=== PATIENT | male | born 1960 | race Caucasian/White ===

== ENCOUNTER 2017-03-31 05:29 | Emergency (ER) | payer OTHER ==
[~2017-03-31] VITALS: Ht 177.8 cm; Wt 75.0 kg
[~2017-03-31 05:29] MED LIST: ACET400C PO; ASPI81 PO; CLA1000C OR; COZA50TA PO; CYCL-36 PO; ISOMCAP PO; MISC1TAB9 PO; NUCY75TA4 PO; OMEG1CAP53 PO; ONDA1TAB16 PO; PRIL20TA2 PO; ROSU10 PO; SUMA50TA2 OR; SUMA6P SQ; TRIL135C PO; VITA500L4 PO; [UNRECOGNIZED DRUG - OTHER] OR
[2017-03-31 05:33] VITALS: BP 136/86; PULSE 97; RESP 18; TEMP 101.1; O2SAT 96
[2017-03-31 06:00] VITALS: BP 135/70; PULSE 98; RESP 20; O2SAT 96
[2017-03-31] MEDS ORDERED: LOSA100T PO (06:02)
[2017-03-31] MEDS ORDERED: OMEG1CAP28 PO (06:02)
[2017-03-31] MEDS ORDERED: ASPI81CH CHEW (06:02)
[2017-03-31] MEDS ORDERED: TOPI1TAB36 PO (06:02)
[2017-03-31] MEDS ORDERED: ROSU1TAB8 PO (06:02)
--- NOTE | 2017-03-31 06:09 | PD ---
HPI Chief Complaint: Abdominal Pain Time Seen by Provider: 05:43 Travel History International Travel<30 days: No Contact w/Intl Traveler<30days: No Traveled to known affect area: No History of Present Illness HPI The patient is a 56 year old male who presents to the [facility] emergency department with a history of abdominal pain that he reports began at approximate 7:30 PM last night. He reports that the pain is sharp and worse in the perineum. The patient reports that it is also present in bilateral lower quadrants of the abdomen and suprapubic area. He reports that in the abdomen the sensation as more of a pressure sensation. The patient reports having nausea but no vomiting. He reports that moving his bowels makes the pain worse. He reports that he's had 2 bowel movements since onset. He denies having any blood in his stool or black or tarry stools. He reports that having a full bladder seems to help with the pain. He otherwise denies any dysuria, urinary frequency, or urinary urgency. He denies having any flank pain. He denies having any new back pain. He does report having a history of chronic back pain. He denies any prior history of prostatitis or diverticulitis. He reports that he had a colonoscopy that was unremarkable 2 years ago. He denies any prior history of kidney stones. The patient was noted to be febrile prior to arrival. The patient arrives with a temp of 101. The patient denies having any diarrhea. He reports that his stool has been slightly hard. The patient denies having any penile discharge, scrotal pain, or scrotal swelling. The patient denies any recent cough cough, congestion, neck pain, chest pain, shortness of breath, or neurologic symptoms. [facility] Past Medical History Narrative Medical The patient's past medical history is significant for chronic back pain, hypertension, hyperlipidemia, coronary artery disease with RCA stenosis of 45% on a heart catheter, migraine headaches, sleep apnea. Blood Disorders: No Cancer: No Cardiac Catheterization: Yes (4 YEARS AGO WTIH 40% OCCLUSION TO RCA) Cardiovascular Problems: Yes High Cholesterol: Yes Coronary Artery Disease: Yes Diminished Hearing: No Endocrine: No Gastrointestinal Disorders: Yes GERD: Yes Genitourinary: No Hypertension: Yes Immune Disorder: No Musculoskeletal: Yes Neurologic: No Psychiatric: No Respiratory: Yes (TESTED POSITIVE NOV 2009) Migraines: Yes Tetanus Vaccination: < 5 Years Influenza Vaccination: No Past Surgical History Narrative Surgical The patient's past surgical history is significant for cervical spine surgery, history of right wrist tendon repair, bone spur removal off of the left foot Neurologic Surgery: Yes (C- cage) Social History Alcohol Use: Yes (3-4 drinks per week) Tobacco Use: No Substance Use: No Allergies-Medications (Allergen,Severity, Reaction): Coded Allergies: Lipitor (Verified Allergy, Severe, CRAMPS, 03/31/17) Reported Meds & Prescriptions Reported Meds & Active Scripts Active Reported Losartan (Losartan Potassium) 100 Mg Tab 100 Mg PO DAILY Topiramate 50 Mg Tab 50 Mg PO BID Rosuvastatin (Rosuvastatin Calcium) 20 Mg Tab 20 Mg PO DAILY Aspirin 81 Mg Chew 81 Mg CHEW DAILY [id number] Ethyl Esters 1 Gm Cap 1 Gm PO BID Review of Systems General / Constitutional: Positive: Fever Eyes: No: Visual changes HENT: No: Headaches Cardiovascular: No: Chest Pain or Discomfort Respiratory: No: Shortness of Breath Gastrointestinal: Positive: Nausea, Abdominal Pain, No: Vomiting, Diarrhea, Hematemesis, Changes in Bowel Habits, Indigestion, Loss of Appetite Genitourinary: Positive: Pelvic Pain, No: Urgency, Frequency, Dysuria, Flank Pain Musculoskeletal: No: Pain Skin: No Rash Neurologic: No: Weakness, Focal Abnormalities, Change in Mentation, Slurred Speech, Sensory Disturbance Psychiatric: No: Depression Endocrine: No: Polydipsia Hematologic/Lymphatic: No: Easy Bruising Physical Exam Narrative General: The patient is a well-developed well-nourished male in no acute distress. Head and Neck exam: Head is normocephalic atraumatic. Eyes: EOMI, pupils are equal round and reactive to light. Nose: Midline septum with pink mucous membranes Mouth: Dentition unremarkable. Moist mucus membranes. Posterior oropharynx is not erythematous. No tonsillar hypertrophy. Uvula midline. Airway patent. Neck: No palpable lymphadenopathy. No nuchal rigidity. No thyromegaly. Cardiovascular: Regular rate and rhythm without murmurs, gallops, or rubs. No pulse deficit to the extremities and simultaneous auscultation and palpation of his radial artery. Lungs: Clear to auscultation bilaterally. No wheezes, rhonchi, or rales. Abdomen: Soft, with tenderness on palpation of the suprapubic area and bilateral lower quadrants of the abdomen slightly worse on the right compared to the left by his report. No tenderness on palpation of the midepigastric area and bilateral upper quadrants of the abdomen. No guarding, rebound, or rigidity. Normal bowel sounds are audible. Extremities: No clubbing, cyanosis, or edema. 2+ pulses in all 4 extremities. Back: No costovertebral angle tenderness to palpation. Neurologic Exam: Grossly nonfocal. Skin Exam: No rash noted. Intact skin that is warm and dry. Genital exam: The patient is a circumcised male. No genital lesions or rash noted. No scrotal pain or swelling on examination. No palpable testicle masses or tenderness on palpation. No perineal erythema or lesions noted. No perineal crepitus. No tenderness on palpation of the site. RECTAL EXAM: No masses or tenderness, stool is brown. No palpable masses on examination of the patient's prostate. No prostate tenderness on palpation. Hemoccult negative stools. Data Data Last Documented VS Vital Signs Date Time Temp Pulse Resp B/P Pulse Ox O2 Delivery O2 Flow Rate FiO2 03/31/17 06:41 97 20 140/68 95 03/31/17 05:33 101.1 Orders Complete Blood Count With Diff (03/31/17 06:11) Comprehensive Metabolic Panel (03/31/17 06:11) Prothrombin Time / Inr (Pt) (03/31/17 06:11) Act Partial Throm Time (Ptt) (03/31/17 06:11) Blood Culture (03/31/17 06:11) Lipase (03/31/17 06:11) Urinalysis - C+S If Indicated (03/31/17 06:11) Magnesium (Mg) (03/31/17 06:11) Ct Abd/Pel W Iv Contrast(Rout) (03/31/17 06:11) Iv Access Insert/Monitor (03/31/17 06:11) Ecg Monitoring (03/31/17 06:11) Oximetry (03/31/17 06:11) Lactic Acid (03/31/17 06:11) Sodium Chlor 0.9% 1000 Ml Inj (Ns 1000 M (03/31/17 06:15) Ondansetron Inj (Zofran Inj) (03/31/17 06:15) Morphine Inj (Morphine Inj) (03/31/17 06:15) Sodium Chlor 0.9% 1000 Ml Inj (Ns 1000 M (03/31/17 07:00) Piperacil-Tazo 3.375 Gm Premix (Zosyn 3. (03/31/17 07:00) Labs Laboratory Tests Test 03/31/17 03/31/17 06:10 06:15 White Blood Count 17.0 TH/MM3 Red Blood Count 5.61 MIL/MM3 Hemoglobin 15.6 GM/DL Hematocrit 47.5 % Mean Corpuscular Volume 84.7 FL Mean Corpuscular Hemoglobin 27.8 PG Mean Corpuscular Hemoglobin 32.8 % Concent Red Cell Distribution Width 14.5 % Platelet Count 163 TH/MM3 Mean Platelet Volume 8.9 FL Neutrophils (%) (Auto) 86.9 % Lymphocytes (%) (Auto) 7.5 % Monocytes (%) (Auto) 5.2 % Eosinophils (%) (Auto) 0.1 % Basophils (%) (Auto) 0.3 % Neutrophils # (Auto) 14.8 TH/MM3 Lymphocytes # (Auto) 1.3 TH/MM3 Monocytes # (Auto) 0.9 TH/MM3 Eosinophils # (Auto) 0.0 TH/MM3 Basophils # (Auto) 0.0 TH/MM3 CBC Comment DIFF FINAL Differential Comment Prothrombin Time 10.7 SEC Prothromb Time International 1.0 RATIO Ratio Activated Partial 26.6 SEC Thromboplast Time Sodium Level 139 MEQ/L Potassium Level 3.9 MEQ/L Chloride Level 108 MEQ/L Carbon Dioxide Level 22.2 MEQ/L Anion Gap 9 MEQ/L Blood Urea Nitrogen 17 MG/DL Creatinine 1.24 MG/DL Estimat Glomerular Filtration 61 ML/MIN Rate Random Glucose 114 MG/DL Calcium Level 9.2 MG/DL Magnesium Level 1.9 MG/DL Total Bilirubin 0.7 MG/DL Aspartate Amino Transf 30 U/L (AST/SGOT) Alanine Aminotransferase 37 U/L (ALT/SGPT) Alkaline Phosphatase 75 U/L Total Protein 7.3 GM/DL Albumin 3.6 GM/DL Lipase 104 U/L Urine Color YELLOW Urine Turbidity CLEAR Urine pH 6.0 Urine Specific [place] 1.025 Urine Protein NEG mg/dL Urine Glucose (UA) NEG mg/dL Urine Ketones NEG mg/dL Urine Occult Blood NEG Urine Nitrite NEG Urine Bilirubin NEG Urine Urobilinogen LESS THAN 2.0 MG/DL Urine Leukocyte Esterase NEG Urine WBC 2 /hpf Urine Transitional Epithelial <1 /hpf Cells Urine Hyaline Casts 1 /lpf Urine Mucus FEW /lpf Microscopic Urinalysis Comment CULT NOT INDICATED MDM Medical Decision Making Medical Screen Exam Complete: Yes Emergency Medical Condition: Yes Medical Record Reviewed: Yes Differential Diagnosis Prostatitis, versus diverticulitis, versus appendicitis, versus cystitis, versus pyelonephritis, versus colitis Narrative Course During the course of the patients emergency department visit, the patients history, examination, and differential diagnosis were reviewed with the patient. The patient had IV access obtained and blood work sent for analysis. The patient was placed on a night monitor with oximetry and blood pressure monitoring. A CT scan of the abdomen and pelvis was ordered. The patient was initially provided normal saline 1 L IV fluid bolus, morphine 4 mg IV, Zofran 4 mg IV. The patient reports that he is having difficulty urinating. A Shukla catheter was placed and the patient had 300 mL of urine out. This was continued during his emergency department observation. The patient was given Tylenol for fever. The patients laboratory studies were reviewed and remarkable for a white count of 17,000, hemoglobin 15.6, platelets 163, neutrophils 86.9. The patient was given Zosyn 3.375 g IV. CMP is remarkable for CO2 of 108, glucose 114, lipase 104, lactic acid is pending. PT 10.7, PTT 26.6, urinalysis is unremarkable. CT scan of the abdomen and pelvis is pending. The patient's case will be checked out to the oncoming emergency physician to disposition based on the conclusion of the patient's workup. Diagnosis Primary Impression: Abdominal pain Qualified Code: R10.30 - Lower abdominal pain Additional Impression: Fever Qualified Code: R50.9 - Fever, unspecified fever cause Karla Olmedo MD March 31, 2017 06:09 Karla Olmedo MD March 31, 2017 06:09
[2017-03-31] MEDS ORDERED: SODIUM CHLOR 0.9% 1000 ML INJ 1,000 ML IV ONE ×2 (06:15→07:00)
[2017-03-31] MEDS ORDERED: ONDANSETRON HCL 4 MG/2 ML VIAL IV ONE (06:15)
[2017-03-31] MEDS ORDERED: MORPHINE SULFATE 4 MG/ML INJ IV PUSH ONE (06:15)
[2017-03-31 06:39] LABS: AUTOMATED NEUTROPHIL # 14.8 TH/MM3 (1.8-7.7); BASOPHIL % 0.3 % (0.0-2.0); EOSINOPHIL % 0.1 % (0.0-4.0); HEMATOCRIT 47.5 % (39.0-51.0); HEMO FLAGS DIFF FINAL; LYMPH % 7.5 % (9.0-44.0); LYMPHOCYTE # 1.3 TH/MM3 (1.0-4.8); MEAN CELL VOLUME 84.7 FL (80.0-100.0); MEAN CORPUSCULAR HEMOGLOBIN 27.8 PG (27.0-34.0); MEAN CORPUSCULAR HGB CONC 32.8 % (32.0-36.0); MONO % 5.2 % (0.0-8.0); NEUT % 86.9 % (16.0-70.0); PLATELET COUNT 163 TH/MM3 (150-450); RED BLOOD COUNT 5.61 MIL/MM3 (4.50-5.90); RED CELL DISTRIBUTION WIDTH 14.5 % (11.6-17.2)
[2017-03-31 06:41] VITALS: BP 140/68; PULSE 97; RESP 20; O2SAT 95
[2017-03-31 06:48] LABS: BLOOD, URINE NEG (NEG); GLUCOSE,URINE NEG (NEG); HYALINE CAST, URINE 1 /lpf (RARE); KETONE, URINE NEG (NEG); MUCUS URINE FEW /lpf (OCC); NITRITE,URINE NEG (NEG); TRANSITIONAL EPI CELLS, URINE <1 /hpf; URINE COLOR YELLOW (YELLW/STRAW)
[2017-03-31 06:51] LABS: APTT (PATIENT) 26.6 SEC (24.3-30.1); PROTHROMBIN TIME - PATIENT 10.7 SEC (9.8-11.6)
[2017-03-31 06:52] LABS: ALT (GPT) 37 U/L (12-78); ANION GAP 9 MEQ/L (5-15); AST (GOT) 30 U/L (15-37); BICARBONATE 22.2 MEQ/L (21.0-32.0); BLOOD UREA NITROGEN 17 MG/DL (7-18); CHLORIDE 108 MEQ/L (98-107); GLOMERULAR FILTRATION RATE 61 ML/MIN (>89); MAGNESIUM 1.9 MG/DL (1.5-2.5); POTASSIUM 3.9 MEQ/L (3.5-5.1); SODIUM (NA) 139 MEQ/L (136-145)
[2017-03-31 06:53] LABS: COMMENT (UR) CULT NOT INDICATED; CULTURE IF INDICATED CULT NOT INDICATED
[2017-03-31 06:55] LABS: ALKALINE PHOSPHATASE 75 U/L (45-117); TOTAL BILIRUBIN ADULT 0.7 MG/DL (0.2-1.0)
[2017-03-31 07:00] VITALS: BP_SYST 130; BP_SYST 138; BP_DIAS 71; BP_DIAS 86; PULSE 84; RESP 17; TEMP 99.1; O2SAT 98
[2017-03-31] MEDS ORDERED: ACETAMINOPHEN 325 MG TAB PO ONE (07:00)
[2017-03-31] MEDS ORDERED: PIPERACIL-TAZO 3.375 GM PREMIX 50 ML IV ONE (07:00)
--- NOTE | 2017-03-31 07:37 | PD ---
Physical Exam Narrative Received sign out from previous team to follow up CTa/p and reevaluate pt. 56yo M with lower abdominal and perineum pain since last night. Abdominal exam is significant for suprapubic tenderness. Pt with leukocytosis of 17,000. Lactic acid is normal at 1.5. CMP unremarkable. UA negative for leukocyte and nitrite. Pt was given morphine 4mg, zofran 4mg, NS IVF, zosyn and acetaminophen. Pt states his pain has improved. CT a/p showed diverticulosis of the colon with slight inflammatory change adjacent to the sigmoid colon suggesting a mild degree of diverticulitis. No perforation or abnormal fluid collection. Pt reevaluated at bedside and is tolerating PO. States pain has resolved. Abdominal exam is benign. Vital signs stable. Will try outpatient treatment first. Data Data Last Documented VS Vital Signs Date Time Temp Pulse Resp B/P Pulse Ox O2 Delivery O2 Flow Rate FiO2 03/31/17 07:00 17 98 Nasal Cannula 2 03/31/17 07:00 84 03/31/17 07:00 99.1 138/71 Orders Complete Blood Count With Diff (03/31/17 06:11) Comprehensive Metabolic Panel (03/31/17 06:11) Prothrombin Time / Inr (Pt) (03/31/17 06:11) Act Partial Throm Time (Ptt) (03/31/17 06:11) Blood Culture (03/31/17 06:11) Lipase (03/31/17 06:11) Urinalysis - C+S If Indicated (03/31/17 06:11) Magnesium (Mg) (03/31/17 06:11) Ct Abd/Pel W Iv Contrast(Rout) (03/31/17 06:11) Iv Access Insert/Monitor (03/31/17 06:11) Ecg Monitoring (03/31/17 06:11) Oximetry (03/31/17 06:11) Lactic Acid (03/31/17 06:11) Sodium Chlor 0.9% 1000 Ml Inj (Ns 1000 M (03/31/17 06:15) Ondansetron Inj (Zofran Inj) (03/31/17 06:15) Morphine Inj (Morphine Inj) (03/31/17 06:15) Sodium Chlor 0.9% 1000 Ml Inj (Ns 1000 M (03/31/17 07:00) Piperacil-Tazo 3.375 Gm Premix (Zosyn 3. (03/31/17 07:00) Acetaminophen (Tylenol) (03/31/17 07:00) Urinary Catheter Insert/Apply (03/31/17 06:57) Iohexol 350 Inj (Omnipaque 350 Inj) (03/31/17 07:56) Labs Laboratory Tests Test 03/31/17 03/31/17 03/31/17 06:10 06:15 06:45 White Blood Count 17.0 TH/MM3 Red Blood Count 5.61 MIL/MM3 Hemoglobin 15.6 GM/DL Hematocrit 47.5 % Mean Corpuscular Volume 84.7 FL Mean Corpuscular Hemoglobin 27.8 PG Mean Corpuscular Hemoglobin 32.8 % Concent Red Cell Distribution Width 14.5 % Platelet Count 163 TH/MM3 Mean Platelet Volume 8.9 FL Neutrophils (%) (Auto) 86.9 % Lymphocytes (%) (Auto) 7.5 % Monocytes (%) (Auto) 5.2 % Eosinophils (%) (Auto) 0.1 % Basophils (%) (Auto) 0.3 % Neutrophils # (Auto) 14.8 TH/MM3 Lymphocytes # (Auto) 1.3 TH/MM3 Monocytes # (Auto) 0.9 TH/MM3 Eosinophils # (Auto) 0.0 TH/MM3 Basophils # (Auto) 0.0 TH/MM3 CBC Comment DIFF FINAL Differential Comment Prothrombin Time 10.7 SEC Prothromb Time International 1.0 RATIO Ratio Activated Partial 26.6 SEC Thromboplast Time Sodium Level 139 MEQ/L Potassium Level 3.9 MEQ/L Chloride Level 108 MEQ/L Carbon Dioxide Level 22.2 MEQ/L Anion Gap 9 MEQ/L Blood Urea Nitrogen 17 MG/DL Creatinine 1.24 MG/DL Estimat Glomerular Filtration 61 ML/MIN Rate Random Glucose 114 MG/DL Calcium Level 9.2 MG/DL Magnesium Level 1.9 MG/DL Total Bilirubin 0.7 MG/DL Aspartate Amino Transf 30 U/L (AST/SGOT) Alanine Aminotransferase 37 U/L (ALT/SGPT) Alkaline Phosphatase 75 U/L Total Protein 7.3 GM/DL Albumin 3.6 GM/DL Lipase 104 U/L Urine Color YELLOW Urine Turbidity CLEAR Urine pH 6.0 Urine Specific [place] 1.025 Urine Protein NEG mg/dL Urine Glucose (UA) NEG mg/dL Urine Ketones NEG mg/dL Urine Occult Blood NEG Urine Nitrite NEG Urine Bilirubin NEG Urine Urobilinogen LESS THAN 2.0 MG/DL Urine Leukocyte Esterase NEG Urine WBC 2 /hpf Urine Transitional Epithelial <1 /hpf Cells Urine Hyaline Casts 1 /lpf Urine Mucus FEW /lpf Microscopic Urinalysis Comment CULT NOT INDICATED Lactic Acid Level 1.5 mmol/L MDM Supervised Visit with MARY JO: No Interpretation(s) Laboratory Tests Test 03/31/17 03/31/17 03/31/17 06:10 06:15 06:45 White Blood Count 17.0 TH/MM3 (4.0-11.0) Red Blood Count 5.61 MIL/MM3 (4.50-5.90) Hemoglobin 15.6 GM/DL (13.0-17.0) Hematocrit 47.5 % (39.0-51.0) Mean Corpuscular Volume 84.7 FL (80.0-100.0) Mean Corpuscular Hemoglobin 27.8 PG (27.0-34.0) Mean Corpuscular Hemoglobin 32.8 % Concent (32.0-36.0) Red Cell Distribution Width 14.5 % (11.6-17.2) Platelet Count 163 TH/MM3 (150-450) Mean Platelet Volume 8.9 FL (7.0-11.0) Neutrophils (%) (Auto) 86.9 % (16.0-70.0) Lymphocytes (%) (Auto) 7.5 % (9.0-44.0) Monocytes (%) (Auto) 5.2 % (0.0-8.0) Eosinophils (%) (Auto) 0.1 % (0.0-4.0) Basophils (%) (Auto) 0.3 % (0.0-2.0) Neutrophils # (Auto) 14.8 TH/MM3 (1.8-7.7) Lymphocytes # (Auto) 1.3 TH/MM3 (1.0-4.8) Monocytes # (Auto) 0.9 TH/MM3 (0-0.9) Eosinophils # (Auto) 0.0 TH/MM3 (0-0.4) Basophils # (Auto) 0.0 TH/MM3 (0-0.2) CBC Comment DIFF FINAL Differential Comment Prothrombin Time 10.7 SEC (9.8-11.6) Prothromb Time International 1.0 RATIO Ratio Activated Partial 26.6 SEC Thromboplast Time (24.3-30.1) Sodium Level 139 MEQ/L (136-145) Potassium Level 3.9 MEQ/L (3.5-5.1) Chloride Level 108 MEQ/L (98-107) Carbon Dioxide Level 22.2 MEQ/L (21.0-32.0) Anion Gap 9 MEQ/L (5-15) Blood Urea Nitrogen 17 MG/DL (7-18) Creatinine 1.24 MG/DL (0.60-1.30) Estimat Glomerular Filtration 61 ML/MIN (>89) Rate Random Glucose 114 MG/DL (74-106) Calcium Level 9.2 MG/DL (8.5-10.1) Magnesium Level 1.9 MG/DL (1.5-2.5) Total Bilirubin 0.7 MG/DL (0.2-1.0) Aspartate Amino Transf 30 U/L (15-37) (AST/SGOT) Alanine Aminotransferase 37 U/L (12-78) (ALT/SGPT) Alkaline Phosphatase 75 U/L (45-117) Total Protein 7.3 GM/DL (6.4-8.2) Albumin 3.6 GM/DL (3.4-5.0) Lipase 104 U/L (73-393) Urine Color YELLOW (YELLW/STRAW) Urine Turbidity CLEAR (CLEAR) Urine pH 6.0 (5.0-8.5) Urine Specific [place] 1.025 (1.002-1.035) Urine Protein NEG mg/dL (NEG-TRACE) Urine Glucose (UA) NEG mg/dL (NEG) Urine Ketones NEG mg/dL (NEG) Urine Occult Blood NEG (NEG) Urine Nitrite NEG (NEG) Urine Bilirubin NEG (NEG) Urine Urobilinogen LESS THAN 2.0 MG/DL (LESS THAN 2.0) Urine Leukocyte Esterase NEG (NEG) Urine WBC 2 /hpf (0-5) Urine Transitional Epithelial <1 /hpf (NONE) Cells Urine Hyaline Casts 1 /lpf (RARE) Urine Mucus FEW /lpf (OCC) Microscopic Urinalysis Comment CULT NOT INDICATED Lactic Acid Level 1.5 mmol/L (0.4-2.0) Last Impressions Abdomen/Pelvis CT 03/31/17 0611 Signed Impressions: Service Date/Time: Friday, March 31, 2017 07:37 - CONCLUSION: 1. Diverticulosis of the colon with slight inflammatory change adjacent to the sigmoid colon suggesting a mild degree of diverticulitis. No perforation or abnormal fluid collection. 2. Rectum is unremarkable. 3. Moderate hepatic steatosis. 4. Fat-containing umbilical hernia. Malcom Qureshi MD Diagnosis Primary Impression: Diverticulitis Qualified Code: K57.32 - Diverticulitis of large intestine without perforation or abscess without bleeding Patient Instructions: General Instructions Departure Forms: Tests/Procedures Additional Instruction: Please follow up with your PMD in 3-7 days. Return to the ED if symptoms worsen. Med/Other Pt SpecificInfo: Prescription(s) given Scripts Acetaminophen (Acetaminophen Extra Strength)500 Mg [id number] Mg PO Q6H PRN (PAIN SCALE 1 TO 4) #20 TAB Ref 0 Prov:Thelma Mcmahon DO 03/31/17 Ondansetron Odt (Zofran Odt)4 Mg Tab4 Mg SL Q12HR PRN (Nausea/Vomiting) #6 TAB Ref 0 Prov:Thelma Mcmahon DO 03/31/17 Metronidazole (Flagyl)500 Mg [id number] Mg PO TID 10 Days Ref 0 Prov:Thelma Mcmahon DO 03/31/17 Ciprofloxacin (Cipro)500 Mg [id number] Mg PO BID 10 Days Ref 0 Prov:Thelma Mcmahon DO 03/31/17 Disposition: 01 DISCHARGE HOME Condition: Stable Thelma Mcmahon DO March 31, 2017 07:37
[2017-03-31] MEDS ORDERED: IOHEXOL 350 MG/ML 10 ML VIAL (for RAD DIAG) IV ONE (07:56)
--- NOTE | 2017-03-31 08:07 | RADRPT ---
EXAM DATE/TIME: 03/31/2017 07:37 [facility] COMPARISON: No previous studies available for comparison. INDICATIONS : Lower pelvic pain, rectal area. IV CONTRAST: 95 cc Omnipaque 350 (iohexol) IV ORAL CONTRAST: No oral contrast ingested. RADIATION DOSE: 17.04 CTDIvol (mGy) MEDICAL HISTORY : Cardiovascular disease. Hypertension. Gastroesophageal reflux disease. SURGICAL HISTORY : None. ENCOUNTER: Initial ACUITY: 1 day PAIN SCALE: 9/10 LOCATION: lower quadrant TECHNIQUE: Volumetric scanning of the abdomen and pelvis was performed. Using automated exposure control and ad justment of the mA and/or kV according to patient size, radiation dose was kept as low as reasonably achievable to obtain optimal diagnostic quality images. FINDINGS: LOWER LUNGS: The visualized lower lungs are clear. LIVER: Decreased attenuation consistent with moderate hepatic steatosis without lesion. There is no dilatio n of the biliary tree. No calcified gallstones. SPLEEN: Normal size without lesion. PANCREAS: Within normal limits. KIDNEYS: Normal in size and shape. There is no mass, stone or hydronephrosis. ADRENAL GLANDS: Within normal limits. VASCULAR: There is no aortic aneurysm. BOWEL/MESENTERY: There is diverticulosis of the descending and sigmoid colon. Some slight inflammatory change in the r egion of the sigmoid colon could be related to a mild degree of diverticulitis. Rectum appears unrema rkable. Appendix is normal.. There is no free intraperitoneal air or fluid. ABDOMINAL WALL: Fat-containing umbilical hernia. RETROPERITONEUM: There is no lymphadenopathy. BLADDER: No wall thickening or mass. REPRODUCTIVE: Within normal limits. INGUINAL: There is no lymphadenopathy or hernia. MUSCULOSKELETAL: Within normal limits for patient age. CONCLUSION: 1. Diverticulosis of the colon with slight inflammatory change adjacent to the sigmoid colon suggesti ng a mild degree of diverticulitis. No perforation or abnormal fluid collection. 2. Rectum is unremarkable. 3. Moderate hepatic steatosis. 4. Fat-containing umbilical hernia. Malcom Qureshi MD on March 31, 2017 at 8:02 Board Certified Radiologist. This report was verified electronically.
[2017-03-31] MEDS ORDERED: METR-1 PO (08:50)
[2017-03-31] MEDS ORDERED: CIPR-9 PO (08:50)
[2017-03-31] MEDS ORDERED: ACET500T36 PO (08:51)
[2017-03-31] MEDS ORDERED: ZOFR4TAB3 SL (08:51)
[2017-03-31 09:15] VITALS: BP 126/77; TEMP 97.8
== END 2017-03-31 09:15 | disposition home or self-care (01) ==
LOC: NEPE 05:29
DX: K57.32 Diverticulitis of large intestine without perforation or abscess without bleeding (principal); K42.9 Umbilical hernia without obstruction or gangrene; Z79.899 Other long term (current) drug therapy
CPT/HCPCS: 51702; 74177; 80053; 81001; 83605; 83690; 83735; 85025; 85610; 85730; 87040; 96361; 96365; 96375; 99284; J2270; J2405; J2543; J7030; Q9967

== ENCOUNTER 2017-10-12 09:23 | Emergency (ER) | payer OTHER ==
[~2017-10-12] VITALS: Ht 175.3 cm; Wt 118.0 kg
[~2017-10-12 09:23] MED LIST changes: -ACET400C PO; -ASPI81 PO; -CLA1000C OR; -COZA50TA PO; -CYCL-36 PO; +CYCL5TAB PO; -ISOMCAP PO; +LOSA100T PO; -MISC1TAB9 PO; +NUCY50TA10 PO; -NUCY75TA4 PO; -ONDA1TAB16 PO; -PRIL20TA2 PO; -ROSU10 PO; +ROSU1TAB8 PO; -SUMA50TA2 OR; -SUMA6P SQ; -TRIL135C PO; -VITA500L4 PO; -[UNRECOGNIZED DRUG - OTHER] OR
[2017-10-12 09:25] VITALS: BP 159/91; PULSE 89; RESP 20; TEMP 99.1; O2SAT 96
[2017-10-12] MEDS ORDERED: SODIUM CHLOR 0.9% 1000 ML INJ 1,000 ML IV SCH (09:38)
--- NOTE | 2017-10-12 09:42 | PD ---
HPI Chief Complaint: Abdominal Pain Time Seen by Provider: 09:38 Travel History International Travel<30 days: No Contact w/Intl Traveler<30days: No Traveled to known affect area: No History of Present Illness HPI 56-year-old man presents emergent" no abdominal pain. Symptoms started yesterday. Pain is more on the right side of his abdomen, but constant since onset. Feels similar to when he had diverticulitis back in November. He otherwise had been feeling generally well and healthy prior to this. He has some decreased appetite with it. He has chronic back pain and has been taking chronic opiates recently. He does feel little bit constipated but states that a normal bowel movement yesterday. He did try several laxatives over-the- counter Sudafed this was held. He also takes Movantik prescribed by his pain management doctor. He's had nausea, no vomiting. No urinary symptoms. No history of abdominal surgeries. No history of renal lithiasis. History Past Medical History Narrative Medical Chronic back pain Hypertension Hyperlipidemia History of diverticulitis 1 Tetanus Vaccination: Unknown Social History Alcohol Use: Yes (3-4 drinks per week) Tobacco Use: No Allergies-Medications (Allergen,Severity, Reaction): Coded Allergies: atorvastatin (Unverified Allergy, Severe, CRAMPS, 10/12/17) Reported Meds & Prescriptions Reported Meds & Active Scripts Active Flexeril (Cyclobenzaprine HCl) 5 Mg Tab 5 Mg PO TID Nucynta (Tapentadol) 50 Mg Tab 50 Mg PO Q6HR PRN Reported Lovaza (Cwdmc-8-Eyqc Ethyl Esters) 1 Gm Cap 1 Gm PO BID Losartan (Losartan Potassium) 100 Mg Tab 100 Mg PO DAILY Rosuvastatin (Rosuvastatin Calcium) 20 Mg Tab 20 Mg PO DAILY Review of Systems Except as stated in HPI: all other systems reviewed are Neg Physical Exam Narrative GENERAL: Well-appearing 56-year-old man, appears uncomfortable, nontoxic. Distress. SKIN: A little bit clammy. No rash. HEAD: Atraumatic. Normocephalic. EYES: Pupils equal and round. No scleral icterus. No injection or drainage. ENT: No nasal bleeding or discharge. Mucous membranes pink and moist. NECK: Trachea midline. No JVD. CARDIOVASCULAR: Regular rate and rhythm. No murmur appreciated. RESPIRATORY: No accessory muscle use. Clear to auscultation. Breath sounds equal bilaterally. GASTROINTESTINAL: Abdomen is obese, soft, mild right lower quadrant tenderness to palpation. No rebound or guarding. MUSCULOSKELETAL: No obvious deformities. No edema. NEUROLOGICAL: Awake and alert. No obvious cranial nerve deficits. Motor grossly within normal limits. Normal speech. PSYCHIATRIC: Appropriate mood and affect; insight and judgment normal. Data Data Last Documented VS Vital Signs Date Time Temp Pulse Resp B/P (MAP) Pulse Ox O2 Delivery O2 Flow Rate FiO2 10/12/17 09:25 99.1 89 20 159/91 (113) 96 Room Air Orders Orders Complete Blood Count With Diff (10/12/17 09:38) Comprehensive Metabolic Panel (10/12/17 09:38) Lipase (10/12/17 09:38) Urinalysis - C+S If Indicated (10/12/17 09:38) Ct Abd/Pel W Iv Contrast(Rout) (10/12/17 09:38) Iv Access Insert/Monitor (10/12/17 09:38) Ecg Monitoring (10/12/17 09:38) Oximetry (10/12/17 09:38) NPO (10/12/17 09:38) Morphine Inj (Morphine Inj) (10/12/17 09:45) Ondansetron Inj (Zofran Inj) (10/12/17 09:45) Sodium Chlor 0.9% 1000 Ml Inj (Ns 1000 M (10/12/17 09:38) Sodium Chloride 0.9% Flush (Ns Flush) (10/12/17 09:45) MDM Medical Decision Making Medical Screen Exam Complete: Yes Emergency Medical Condition: Yes Differential Diagnosis Appendicitis, diverticulitis, renal lithiasis, constipation, perforation, other Narrative Course Medical decision making the 56-year-old male presents with right sided abdominal pain, some right sided tenderness, feels like diverticulitis. Concern for diverticulitis versus appendicitis, UTI, renal lithiasis, less likely. Constipation also possible but less likely. We'll check labs, CT, reassess. Likely discharge. Joaquin Bledsoe MD Oct 12, 2017 09:42
[2017-10-12] MEDS ORDERED: ONDANSETRON HCL 4 MG/2 ML VIAL IVP ONE (09:45)
[2017-10-12] MEDS ORDERED: MORPHINE SULFATE 4 MG/ML INJ IV PUSH ONE (09:45)
[2017-10-12] MEDS ORDERED: SODIUM CHLORIDE 0.9% FLUSH 10 ML FLUSH IV FLUSH PRN (09:45)
[2017-10-12] MEDS ORDERED: TOPA50TA7 PO (10:00)
[2017-10-12 10:02] VITALS: PULSE 78; RESP 15; O2SAT 95
[2017-10-12 10:28] LABS: AUTOMATED NEUTROPHIL # 14.6 TH/MM3 (1.8-7.7); BASOPHIL # 0.1 TH/MM3 (0-0.2); BASOPHIL % 0.3 % (0.0-2.0); EOSINOPHIL % 0.2 % (0.0-4.0); HEMATOCRIT 47.3 % (39.0-51.0); HEMO FLAGS DIFF FINAL; LYMPHOCYTE # 1.4 TH/MM3 (1.0-4.8); MEAN CELL VOLUME 84.9 FL (80.0-100.0); MEAN CORPUSCULAR HEMOGLOBIN 28.1 PG (27.0-34.0); MEAN CORPUSCULAR HGB CONC 33.1 % (32.0-36.0); MONO % 4.9 % (0.0-8.0); NEUT % 86.6 % (16.0-70.0); PLATELET COUNT 176 TH/MM3 (150-450); RED BLOOD COUNT 5.57 MIL/MM3 (4.50-5.90); RED CELL DISTRIBUTION WIDTH 14.9 % (11.6-17.2); WHITE BLOOD COUNT 16.9 TH/MM3 (4.0-11.0)
[2017-10-12 10:49] LABS: ALKALINE PHOSPHATASE 70 U/L (45-117); ALT (GPT) 24 U/L (12-78); ANION GAP 8 MEQ/L (5-15); AST (GOT) 17 U/L (15-37); BICARBONATE 22.6 MEQ/L (21.0-32.0); BLOOD UREA NITROGEN 19 MG/DL (7-18); CHLORIDE 105 MEQ/L (98-107); GLOMERULAR FILTRATION RATE 74 ML/MIN (>89); SODIUM (NA) 136 MEQ/L (136-145); TOTAL BILIRUBIN ADULT 1.3 MG/DL (0.2-1.0)
--- NOTE | 2017-10-12 10:50 | PD ---
Physical Exam Date Seen by Provider: Oct 12, 2017 Time Seen by Provider: 10:49 Narrative 56-year-old male previously seen by Dr. Bledsoe in [facility] here and now being seen by myself in [facility], with history of abdominal discomfort. Labs ordered as well as CT of the abdomen. Data Data Last Documented VS Vital Signs Date Time Temp Pulse Resp B/P (MAP) Pulse Ox O2 Delivery O2 Flow Rate FiO2 10/12/17 10:02 78 15 95 Room Air 10/12/17 09:25 99.1 Orders Orders Complete Blood Count With Diff (10/12/17 09:38) Comprehensive Metabolic Panel (10/12/17 09:38) Lipase (10/12/17 09:38) Ct Abd/Pel W Iv Contrast(Rout) (10/12/17 09:38) Iv Access Insert/Monitor (10/12/17 09:38) Ecg Monitoring (10/12/17 09:38) Oximetry (10/12/17 09:38) NPO (10/12/17 09:38) Morphine Inj (Morphine Inj) (10/12/17 09:45) Ondansetron Inj (Zofran Inj) (10/12/17 09:45) Sodium Chlor 0.9% 1000 Ml Inj (Ns 1000 M (10/12/17 09:38) Sodium Chloride 0.9% Flush (Ns Flush) (10/12/17 09:45) Iohexol 350 Inj (Omnipaque 350 Inj) (10/12/17 11:26) Ciprofloxacin (Cipro) (10/12/17 12:15) Metronidazole (Flagyl) (10/12/17 12:15) Labs Laboratory Tests Test 10/12/17 09:55 White Blood Count 16.9 TH/MM3 Red Blood Count 5.57 MIL/MM3 Hemoglobin 15.7 GM/DL Hematocrit 47.3 % Mean Corpuscular Volume 84.9 FL Mean Corpuscular Hemoglobin 28.1 PG Mean Corpuscular Hemoglobin Concent 33.1 % Red Cell Distribution Width 14.9 % Platelet Count 176 TH/MM3 Mean Platelet Volume 7.7 FL Neutrophils (%) (Auto) 86.6 % Lymphocytes (%) (Auto) 8.0 % Monocytes (%) (Auto) 4.9 % Eosinophils (%) (Auto) 0.2 % Basophils (%) (Auto) 0.3 % Neutrophils # (Auto) 14.6 TH/MM3 Lymphocytes # (Auto) 1.4 TH/MM3 Monocytes # (Auto) 0.8 TH/MM3 Eosinophils # (Auto) 0.0 TH/MM3 Basophils # (Auto) 0.1 TH/MM3 CBC Comment DIFF FINAL Differential Comment Blood Urea Nitrogen 19 MG/DL Creatinine 1.05 MG/DL Random Glucose 118 MG/DL Total Protein 7.3 GM/DL Albumin 2.9 GM/DL Calcium Level 8.4 MG/DL Alkaline Phosphatase 70 U/L Aspartate Amino Transf (AST/SGOT) 17 U/L Alanine Aminotransferase (ALT/SGPT) 24 U/L Total Bilirubin 1.3 MG/DL Sodium Level 136 MEQ/L Potassium Level 4.3 MEQ/L Chloride Level 105 MEQ/L Carbon Dioxide Level 22.6 MEQ/L Anion Gap 8 MEQ/L Estimat Glomerular Filtration Rate 74 ML/MIN Lipase 98 U/L MDM Medical Record Reviewed: Yes Supervised Visit with MARY JO: Yes Narrative Course CBC is significant for leukocytosis of 16.9. CMP is unremarkable except for BUN of 19, GFR 74, random glucose 118, calcium 8.4, total bilirubin is 1.3, albumin is 2.9. Diagnosis Primary Impression: Diverticulitis Referrals: [facility] Patient Instructions: Diverticulitis (ED), General Instructions Departure Forms: Work Release Enter return to work date: Oct 18, 2017 Additional Instruction: CT scan showed diverticulitis without perforation. Take your Cipro 500 mg twice a day 7 days. Take metronidazole 500 mg 3 times a day 7 days. Low-residue diet. Follow-up with medical receptionist as discussed. Work note given. Med/Other Pt SpecificInfo: Prescription(s) given Scripts Metronidazole (Metronidazole) 500 Mg Tab 500 MG PO TID for Infection for 7 Days, TAB 0 Refills Prov: Joaquin Bledsoe MD 10/12/17 Ciprofloxacin (Cipro) 500 Mg Tab 500 MG PO BID for Infection for 7 Days, #14 TAB 0 Refills Prov: Joaquin Bledsoe MD 10/12/17 Disposition: 01 DISCHARGE HOME Condition: Stable Prem Díaz Oct 12, 2017 10:50
[2017-10-12 10:51] LABS: POTASSIUM 4.3 MEQ/L (3.5-5.1)
[2017-10-12] MEDS ORDERED: IOHEXOL 350 MG/ML 10 ML VIAL (for RAD DIAG) IVCONTRAST ONE (11:26)
--- NOTE | 2017-10-12 11:46 | RADRPT ---
EXAM DATE/TIME: 10/12/2017 11:07 [facility] COMPARISON: CT ABDOMEN & PELVIS W CONTRAST, March 31, 2017, 7:37. INDICATIONS : Right side abdominal pain IV CONTRAST: 95 cc Omnipaque 350 (iohexol) IV ORAL CONTRAST: No oral contrast ingested. RADIATION DOSE: 14.36 CTDIvol (mGy) MEDICAL HISTORY : Cardiovascular disease. SURGICAL HISTORY : None. ENCOUNTER: Initial ACUITY: 2 days PAIN SCALE: 6/10 LOCATION: Bilateral lower quadrant TECHNIQUE: Volumetric scanning of the abdomen and pelvis was performed. Using automated exposure control and ad justment of the mA and/or kV according to patient size, radiation dose was kept as low as reasonably achievable to obtain optimal diagnostic quality images. DICOM format image data is available electro nically for review and comparison. FINDINGS: LOWER LUNGS: The visualized lower lungs are clear. LIVER: Homogeneously low density without lesion. There is no dilation of the biliary tree. No calcified ga llstones. SPLEEN: Normal size without lesion. PANCREAS: Within normal limits. KIDNEYS: Normal in size and shape. There is no mass, stone or hydronephrosis. ADRENAL GLANDS: Within normal limits. VASCULAR: There is no aortic aneurysm. BOWEL/MESENTERY: There is an acute inflammatory process involving the sigmoid colon. There is circumferential wall thi ckening and stranding of the adjacent mesentery. This extends into the right lower quadrant where the re is secondary involvement of the couple of loops of small bowel. The appendix is retrocecal in natu re and normal by CT criteria. There is no free air or free fluid. No dilatation to suggest obstructio n. No abscess. Stomach is unremarkable. ABDOMINAL WALL: There is an umbilical hernia containing omental fat. RETROPERITONEUM: There is no lymphadenopathy. BLADDER: No wall thickening or mass. REPRODUCTIVE: Within normal limits. INGUINAL: There is no lymphadenopathy or hernia. MUSCULOSKELETAL: Within normal limits for patient age. CONCLUSION: 1. Acute sigmoid colitis most likely diverticular in nature. There is secondary involvement of adjace nt loops of small bowel. No perforation, obstruction, or abscess. 2. Hepatic steatosis. Jose Juan Constantino Jr., MD on October 12, 2017 at 11:40 Board Certified Radiologist. This report was verified electronically.
[2017-10-12] MEDS ORDERED: METR1TAB76 PO (12:04)
[2017-10-12] MEDS ORDERED: CIPR-9 PO (12:04)
[2017-10-12] MEDS ORDERED: HYDR-3516 PO (12:04)
[2017-10-12] MEDS ORDERED: CIPROFLOXACIN 750 MG TAB PO ONE (12:15)
[2017-10-12] MEDS ORDERED: metroNIDAZOLE 500 MG TAB PO ONE (12:15)
[2017-10-12] MEDS ORDERED: ZOFR4TAB PO (12:22)
[2017-10-12 12:56] VITALS: BP 124/75
== END 2017-10-12 12:57 | disposition home or self-care (01) ==
LOC: NEPD 09:23
DX: K57.92 Diverticulitis of intestine, part unspecified, without perforation or abscess without bleeding (principal); D72.829 Elevated white blood cell count, unspecified; M54.9 Dorsalgia, unspecified; G89.29 Other chronic pain; I10 Essential (primary) hypertension; E78.5 Hyperlipidemia, unspecified; K59.00 Constipation, unspecified; Z79.899 Other long term (current) drug therapy
CPT/HCPCS: 74177; 80053; 83690; 85025; 96361; 96374; 96375; 99285; J2270; J2405; J7030; Q9967